=== PATIENT | female | born 1945 | race Caucasian/White ===

== ENCOUNTER → 2019-12-20 | Outpatient (CLI) | payer MEDICARE, BC | END | disposition home or self-care (01) | LOC: LAB 10:15 | PROVIDERS: ATTEND Registered Nurse | DX: Z11.59 Encounter for screening for other viral diseases (principal) | CPT/HCPCS: U0003-CS ==

== ENCOUNTER → 2019-12-24 | Day surgery (SDC) | payer MEDICARE, BC ==
[~2019-12-24] MED LIST: BALANCED SALT IRRIG OPHTH SOLN 15 ML BOTTLE. IRR ONE; CATARACT OPHTH GEL 0.5 ML SYRINGE. OD ONE; CHONDROIT-SOD-HYALURONATE KIT. OD ONE; CHONDROIT-SOD-HYALURONATE KIT. OD SCH; EPINEPHrine AMPULE 0.5 MG in BALANCED SALT IRRIG SOLN PLUS 500 ML IO ONE; ERYTHROMYCIN 0.5% OPHTH OINTMENT 1GM TUBE. OD ONE; HYALURONIDASE 75UNITS in LIDOCAINE 2% PF OPHTH 10 ML SYRINGE. OD ONE; IPRATRPIUM/ALBUTEROL 0.5/2.5MG 3 ML NEBU. NEB PRN; IV RINGERS SOLUTION,LACTATED 1,000 ML IV SCH; KETOROLAC TROMETHAMINE 0.5% OPHTH SOLUTION BOTTLE. OD SCH; KETOROLAC TROMETHAMINE 0.5% OPHTH SOLUTION BOTTLE. ONE; MOXIFLOXACIN 0.5% OPHTH SOLUTION 3ML BOTTLE. OD SCH; ONDANSETRON PF 4 MG/2 ML VIAL. IV PRN; POVIDONE-IODINE 5% OPHTH SOLUTION 30ML BOTTLE. OD ONE; PROPOFOL 10,000 MCG/ML (20ML) VIAL IV ONE; TETRACAINE 0.5% OPHTH SOLUTION 4ML BOTTLE. OD ONE; TETRACAINE 0.5% OPHTH SOLUTION 4ML BOTTLE. OU ONE; prednisoLONE ACETATE 1% OPHTH SUSPENSION 5ML BOTTLE. OD SCH; prednisoLONE ACETATE 1% OPHTH SUSPENSION 5ML BOTTLE. ONE
[2019-12-24] MEDS: MOXIFLOXACIN 0.5% OPHTH SOLUTION 3ML BOTTLE. OD SCH ×3 (07:43→07:48)
[2019-12-24 09:03] VITALS: BP 167/70
--- NOTE | 2019-12-24 09:13 | PDOC4 ---
Phaco IOL/Cataract/OD Date of Procedure: Dec 24, 2019 Preoperative Diagnosis: Preoperative Diagnosis: Senile Cataract, Right Eye Postoperative Diagnosis: Senile Cataract, Right Eye Anesthesia: Local with monitored anesthesia care Surgeon: Gertrude Johnson D.O. Procedure: Right Phacoemulsification with Intraocular Lens Implant Findings: Senile Cataract Indications: Worsening vision interfering with patient's lifestyle Narrative: After discussing the risks, complications and alternatives, including but not limited to loss of vision, infection, bleeding, swelling, anesthetic reaction, capsule rupture with vitreous loss, etc., the patient was given a peribulbar block under mild IV sedation and cardiac monitoring. Pressure was applied to the eye for approximately 10 minutes. The patient was transferred to the main operating room and was prepped and draped in the usual sterile fashion and positioned under the microscope. A lid speculum was placed. A temporal clear corneal incision was made with a keratome and viscoelastic was injected into the eye. A side port incision was made. A continuous tear capsulorrhexis was performed, then hydrodissection was accomplished with balanced salt solution. The phacoemulsification needle was placed in the eye and the nucleus was emulsified. The remaining cortical material was removed with the irrigation and aspiration apparatus. The capsule was polished as needed. The posterior capsule was noted to be clean and intact. Viscoelastic was injected into the eye inflating the capsular bag. An intraocular lens was injected into the eye, unfolding as desired and was positioned in the capsular bag. The viscoelastic was aspirated from the eye. At this point there was noted to be increased posterior positive pressure resulting in shallowing of the anterior chamber. More viscoelastic was injected resulting in better posterior position of the IOL, but positive pressure remained. The viscoelastic was removed, and a 10-0 nylon suture was placed. BSS was injected through the sideport incision with better IOL positioning. The wound edges were hydrated with balanced salt solution and there were no leaks. Viscoelastic was injected over the limbal incisions. Antibiotic and steroid were placed on the eye. The lid speculum was removed, the eye patched shut and a Adamson shield applied. The patient was taken to the PACU in good condition. The patient will return to the outpatient clinic today for a pressure check. GERTRUDE JOHNSON DO Dec 24, 2019 09:13
== END | disposition home or self-care (01) ==
LOC: SURG 07:03
PROVIDERS: ATTEND Ophthalmology
DX: H25.89 Other age-related cataract (principal); Z79.899 Other long term (current) drug therapy
CPT/HCPCS: 66984; J0171; J2704; V2632

== ENCOUNTER → 2021-06-15 | Outpatient (CLI) | payer MEDICARE, BC ==
[2019-12-24 09:03] VITALS: BP 167/70
--- NOTE | 2021-06-15 12:13 | RAD ---
US HEAD/NECK SOFT TISSUE History: Lump on neck. Comparison: None. Technique: Multiple grayscale and color Doppler images of the area of concern in the neck. Findings: In the area of concern in the left submandibular neck, there is a nonspecific hypoechoic fo cus measuring approximately 10 x 3 x 8 mm. This is located just superficial to an osseous structure, suspect the mandible. Mildly echogenic contents are seen with a a few foci of color Doppler. No signi ficant peripheral hyperemia is identified. IMPRESSION: 1. Nonspecific hypoechoic mass in the left submandibular neck measuring 10 x 3 x 8 mm. This may repr esent abscess/phlegmon with some internal debris and septations versus a necrotic lymph node or mass. Correlate with history. MRI of the neck with contrast could provide further characterization. Electronically signed by: Olu Regalado MD (06/15/2021 12:11 PM) [id number]
== END ==
LOC: US 10:16
PROVIDERS: ATTEND Family Medicine
DX: R22.1 Localized swelling, mass and lump, neck (principal)
CPT/HCPCS: 76536